=== PATIENT | female | born 1940 | race Two or more races ===

== ENCOUNTER 2018-12-03 09:45 | Outpatient (CLI) | payer OTHER ==
[~2018-12-03] VITALS: Ht 152.4 cm; Wt 81.6 kg
== END 2018-12-03 10:00 | disposition home or self-care (01) ==
LOC: OFIC 805 09:45
DX: H90.3 Sensorineural hearing loss, bilateral (principal); J31.0 Chronic rhinitis; J34.3 Hypertrophy of nasal turbinates

== ENCOUNTER → 2018-12-03 | Outpatient (CLI) | payer OTHER ==
[~2018-12-03] MED LIST: COZAAR50 MG; DILTIAZEM 24HR120 MG; FLONASE16 G1 NS; GLUCOPHAGE XR500 MG; IBUPROFEN800 MG PO; ORPH100T PO
== END | disposition home or self-care (01) ==
LOC: RAD 501 14:19
DX: M25.512 Pain in left shoulder (principal); M25.561 Pain in right knee; M25.562 Pain in left knee; M54.5 Low back pain

== ENCOUNTER 2018-12-04 16:46 | Outpatient (CLI) | payer OTHER | END 2018-12-04 16:56 | disposition home or self-care (01) | LOC: MAMO-SONO 16:46 | DX: Z12.31 Encounter for screening mammogram for malignant neoplasm of breast (principal); Z87.898 Personal history of other specified conditions; N60.11 Diffuse cystic mastopathy of right breast ==